=== PATIENT | female | born 1945 | race Caucasian/White ===

== ENCOUNTER 2025-07-29 20:37 | Emergency (ER) | payer OTHER ==
[~2025-07-29] VITALS: Ht 157.5 cm; Wt 73.0 kg
[2025-07-29 20:41] VITALS: O2SAT 98
[2025-07-29] MEDS: KETOROLAC 30MG/ML VIAL IM ONE (21:15)
[2025-07-29] MEDS: MORPHINE SULFATE 4 MG/ML INJ (FOR IV/IM USE) IV ONE (22:39)
[2025-07-29 22:48] LABS: BASOPHILS % 0.2 % (0.0-2.0); EOSINOPHILS % 0.4 % (0.0-5.0); HEMATOCRIT. 33.4 % (36.0-48.0); HEMOGLOBIN. 10.5 g/dL (12.0-16.0); LYMPHOCYTES % 12.7 % (20.0-50.0); MEAN PLATELET VOLUME 7.5 fl (7.4-10.4); MONOCYTES % 4.3 % (2.0-8.0); NEUTROPHILS % 82.4 % (40.0-76.0); PLATELET 237 x1000/uL (130-400); RED BLOOD CELL COUNT 4.20 mill/uL (4.2-5.4); RED CELL DISTRIBUTION WIDTH 16.8 % (11.6-14.6)
[2025-07-29 22:58] LABS: CREATININE 1.6 mg/dL (0.6-1.0); UREA NITROGEN BLOOD 28.0 mg/dL (9-23)
[2025-07-30] MEDS: SODIUM CHLORIDE 0.9% 1,000 ML IV ONE (01:07)
[2025-07-30 01:36] VITALS: BP 113/65; PULSE 81; RESP 16; TEMP 36.6; O2SAT 94
== END 2025-07-30 01:56 | disposition short-term general hospital (02) ==
LOC: ER 20:37
DX: S32.401A Unspecified fracture of right acetabulum, initial encounter for closed fracture (principal); S32.599A Other specified fracture of unspecified pubis, initial encounter for closed fracture; S32.10XA Unspecified fracture of sacrum, initial encounter for closed fracture; E03.9 Hypothyroidism, unspecified; J45.909 Unspecified asthma, uncomplicated; M43.00 Spondylolysis, site unspecified; F10.90 Alcohol use, unspecified, uncomplicated; W19.XXXA Unspecified fall, initial encounter; Y93.89 Activity, other specified; Y92.89 Other specified places as the place of occurrence of the external cause; Y99.8 Other external cause status; Y90.9 Presence of alcohol in blood, level not specified
CPT/HCPCS: 99285; 96374; 72192; 80048; 85025; 36415; 72170; 73080; 96372; 96361; J1885; J2270; J7030; 96360